=== PATIENT | female | born 1960 | race Caucasian/White ===

== ENCOUNTER → 2020-04-16 | Outpatient (CLI) | payer BC ==
[~2020-04-16] MED LIST: REGADENOSON 0.4 MG/5 ML DISP.SYRIN. IV ONE
--- NOTE | 2020-04-16 14:08 | RAD ---
MR#: [id number] Date of Study: 04/16/2020 Ordering Physician: MAURICIO REYES, Referring Physician: CHEY DELEON Tech: CHARITY Barbour APPROVED REPORT Test Type: Pharmacological Stress Nurse/Tech: Sarah Pina R.N. Test Indications: chest pain Cardiac History: smoker, [place] in 2011 Medications: See Electronic Medical Record Medical History: See Electronic Medical Record Resting ECG: NSR Resting Heart Rate: 73 bpm Resting Blood Pressure: 143/84mmHg Pretest Chest Pain: No chest pain Nurse/Tech Notes Murmur, Lungs sound clear Consent: The procedure was explained to the patient in lay terms. Informed consent was witnessed. [place] eout was entered into [employer]. History and Stress Test performed by Sarah Pina R.N. Pharm. Details Pharmacologic stress testing was performed using 0.4mg per 5ml of regadenoson given intravenously ove r 7-10 seconds. Stress Symptoms Dyspnea POST EXERCISE Reason for Termination: Infusion complete Target HR: 134 Max HR: 139 bpm Max Blood Pressure: 144/69mmHg Blood Pressure response to exercise: Normal blood pressure response during stress. Chest Pain: No. Arrhythmia: No. ST Change: No. INTERPRETATION Stress EKG Conclusion: Baseline EKG showed sinus rhythm. No ischemic changes at peak stress. No arr hythmias. Imaging Protocol IMAGE PROTOCOL: Rest Tc-99m/stress Tc-99m 1 day Rest: Stress: Viability: Radiopharm.Tc99m [id number] Sestamibi Dose10.4mCi 33mCi Duration 15min. 13min. Img Date 04/16/2020 04/16/2020 Inj-Img [id number]. 60min. Rest Admin Site:IV - Right AntecubitalAdministrator:RT Devyn (R)(N) Stress Admin Site: IV - Right AntecubitalAdministrator: RT Devyn (R)(N) STRESS DATA End Diast. Vol.58.0mlAv. Heart Rate82.0bpm LVEDV index BSA34.0mlCardiac Output0.0L/min End Syst. Vol.8.0mlCO Index BSA0.0L/min LVESV index BSA5.0mlMyocardial Ybss599.0g Eject. Eqmgettx37.0% Stress Scores Regional WT1.00Summed WT6.00 Regional WM0.00Summed WM0.00 Study quality was good. Left Ventricular size was Normal at Rest and Stress. Lung uptake was . Left Ventricular ejection fraction is 84%. The rest and stress images show normal perfusion, normal contraction and thickening. LV Perf. Quant 17 Seg. SSS0.00 17 Seg. SRS0.00 17 Seg. SDS0.00 Stress Defect Extent (% LAD)0.00Rest Defect Extent (% LAD)0.00Rev. Defect Extent (% LAD)0.00 Stress Defect Extent (% LCX) 0.00Rest Defect Extent (% LCX)0.00Rev. Defect Extent (% LCX)0.00 Stress Defect Extent (% RCA)0.00Rest Defect Extent (% RCA)0.00Rev. Defect Extent (% RCA)0.00 Stress Defect Extent (% GRACE)0.00Rest Defect Extent (% GRACE)0.00Rev. Defect Extent (% GRACE)0.00 Conclusion 1. Regadenoson cardioisotope stress test did not show any evidence of ischemia or infarct. 2. Normal left ventricular systolic function with ejection fraction calculated at 84%. 3. Low risk for cardiac events. Signed by : Gil Alarcon, Electronically Approved : 04/16/2020 14:07:49
== END ==
LOC: NM 10:28
PROVIDERS: ATTEND Internal Medicine Cardiovascular Disease
DX: R07.9 Chest pain, unspecified (principal); I25.2 Old myocardial infarction; Z87.891 Personal history of nicotine dependence
CPT/HCPCS: 78452; 93017; A9500; J2785

== ENCOUNTER → 2021-06-23 | Outpatient (CLI) | payer BC ==
--- NOTE | 2021-06-24 09:23 | CARD ---
MR#: [id number] Date of Study: 06/23/2021 Ordering Physician: MAURICIO REYES, Referring Physician: MAURICIO REYES, Tech: Wendy Bearden [facility] APPROVED REPORT EXAM: Two-dimensional and M-mode echocardiogram with Doppler and color Doppler. Other Information Quality : AverageHR: 75bpm Rhythm : NSR INDICATION Chest Pain RISK FACTORS Smoking 2D DIMENSIONS RVDd2.8 (2.9-3.5cm)Left Atrium(2D)2.7 (1.6-4.0cm) IVSd0.8 (0.7-1.1cm)Aortic Root(2D)2.9 (2.0-3.7cm) LVDd4.1 (3.9-5.9cm)LVOT Diameter2.1 (1.8-2.4cm) PWd1.0 (0.7-1.1cm)LVDs2.3 (2.5-4.0cm) FS (%) 43.6 %SV54.9 ml LVEF(%)75.3 (>50%) Aortic Valve AoV Peak Brian.207.9cm/sAoV VTI42.4cm AO Peak GR.17.3mmHgLVOT Peak Brian.90.2cm/s AO Mean GR.8mmHgAVA (VMAX)1.56cm2 Mitral Valve MV E Jbfekilt898.1cm/sMV DECEL [id number] MV A Kdawaywy29.4cm/sE/A Ratio1.5 Pulmonary Valve PV Peak Mrtmelbu954.9cm/s Tricuspid Valve TR P. Hrlsxldp909cm/sTR Peak Gr.23mmHg LEFT VENTRICLE The left ventricle is normal size. There is normal left ventricular wall thickness. The left ventricu lar systolic function is normal and the ejection fraction is within normal range. Estimated ejection fractiohn 60-65%. There is normal LV segmental wall motion. The left ventricular diastolic function a nd filling is normal for age. RIGHT VENTRICLE The right ventricle is normal size. There is normal right ventricular wall thickness. The right ventr icular systolic function is normal. ATRIA The left atrium size is normal. The right atrium size is normal. The interatrial septum is intact wit h no evidence for an atrial septal defect or patent foramen ovale as noted on 2-D or Doppler imaging. AORTIC VALVE The aortic valve is thickened but opens well. Doppler and Color Flow revealed no significant aortic r egurgitation. There is no significant aortic valvular stenosis. MITRAL VALVE The mitral valve is normal in structure and function. There is no evidence of mitral valve prolapse. There is no mitral valve stenosis. Doppler and Color-flow revealed trace mitral regurgitation. TRICUSPID VALVE The tricuspid valve is normal in structure and function. Doppler and Color Flow revealed no tricuspid valve regurgitation noted. There is no tricuspid valve stenosis. PULMONIC VALVE Doppler and Color Flow revealed no pulmonic valvular regurgitation. There is no pulmonic valvular magdiel nosis. GREAT VESSELS The aortic root is normal in size. The ascending aorta is normal in size. The IVC is normal in size a nd collapses >50% with inspiration. PERICARDIAL EFFUSION There is no evidence of significant pericardial effusion. Critical Notification Critical Value: No <Conclusion> The left ventricular systolic function is normal and the ejection fraction is within normal range. E stimated ejection fractiohn 60-65%. There is normal LV segmental wall motion. Signed by : Mauricio Reyes, Electronically Approved : 06/24/2021 09:22:51
== END ==
LOC: ECHO 12:23
PROVIDERS: ATTEND Internal Medicine Cardiovascular Disease
DX: I48.0 Paroxysmal atrial fibrillation (principal)
CPT/HCPCS: 93306; C8929